=== PATIENT | female | born 1980 | race African-American/Black ===

== ENCOUNTER 2019-11-07 20:46 | Emergency (ER) | payer OTHER ==
[~2019-11-07] VITALS: Ht 167.6 cm; Wt 72.6 kg
[2019-11-07] MEDS ORDERED: ALBUTEROL FS 2.5 MG/3 ML VIAL.NEB NEB ONE (21:30)
[2019-11-07] MEDS ORDERED: ALBUTEROL FS 2.5 MG/3 ML VIAL.NEB ONE (21:43)
--- NOTE | 2019-11-07 21:46 | NUR ---
C/O SOB DUE TO SMOKE EXPOSURE X1 HR X RAY EQUIPMENT TESTER. 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 HHN TX GIVEN BY EMS AT THE SCENE 1HR X RAY EQUIPMENT TESTER. PT AAOX4, VSS. RR EVEN & UNLABORED. DENIES CP, DIZZINESS, N/V AT THIS TIME. PT SEEN & EVAL'D BY DR. HEART. PT GETTING BREATHING TX. WILL CONT TO MONITOR.
--- NOTE | 2019-11-07 21:47 | NUR ---
PT REFUSING VBG, REQUESTING JUST ALBUTEROL TREATMENT AND CXRAY AT THIS TIME.
[2019-11-07 22:20] VITALS: BP 124/79
== END 2019-11-07 22:20 | disposition home or self-care (01) ==
LOC: ER 20:50
DX: J18.9 Pneumonia, unspecified organism (principal); R06.02 Shortness of breath; X02.1XXA Exposure to smoke in controlled fire in building or structure, initial encounter; Y93.89 Activity, other specified; Y92.89 Other specified places as the place of occurrence of the external cause; Y99.8 Other external cause status
CPT/HCPCS: 71045-TC